=== PATIENT | male | born 1945 | race Caucasian/White ===

== ENCOUNTER → 2016-08-19 | Outpatient (CLI) | payer MEDICARE ==
[~2016-08-19] MED LIST: ALBU18HF PO; AMIT10TA PO; ASPI-496 PO; ASPI325T92 PO; ATOR40TA PO; BENZ2AMP4 PO; CARB1TAB44 PO; CARB1TAB47 PO; CHOL200024 PO; CLOP75TA PO; CYAN250T PO; FINA1TAB16 PO; FLUD0.1T PO; HYDR-3240 PO; L-METHYLFOLATE PO; LORA1TAB PO; MAGNESIUM COMPLEX PO; METO-93 PO; MV-M1TAB16 PO; NITR0.4T SL; OMEG-133 PO; PRAV80TA2 PO; RIVA1PAT23 HOMETD; SERT100T5 PO; TAMS0.4C2 PO; VITAMIN B12 PO; [UNRECOGNIZED DRUG - CODE] PO; [UNRECOGNIZED DRUG - OTHER] PO
== END | disposition home or self-care (01) ==
LOC: STAR 11:57
PROVIDERS: ATTEND Urology
DX: Z01.818 Encounter for other preprocedural examination (principal); C67.2 Malignant neoplasm of lateral wall of bladder; N35.8 Other urethral stricture
CPT/HCPCS: 81003; 87086; 93005

== ENCOUNTER 2016-08-25 05:27 | Day surgery (SDC) | payer MEDICARE ==
[2016-08-19 13:37] VITALS: BP 174/80
[~2016-08-25] VITALS: Ht 170.2 cm; Wt 66.0 kg
[2016-08-25] MEDS ORDERED: LIDOCAINE 1%, 2ML ONE (06:09)
[2016-08-25] MEDS ORDERED: LACTATED RINGERS 1,000 ML IV SCH (06:29)
[2016-08-25] MEDS ORDERED: LIDOCAINE 1%, 2ML SQ PRN (06:30)
[2016-08-25] MEDS ORDERED: ALBUTEROL/IPRATROPIUM 2.5MG/0.5MG, 3 ML ONE (07:08)
[2016-08-25] MEDS ORDERED: ALBUTEROL/IPRATROPIUM 2.5MG/0.5MG, 3 ML NEB ONE (07:30)
[2016-08-25] MEDS ORDERED: FENTANYL PF 100 MCG/2ML ONE ×2 (07:58→09:06)
[2016-08-25] MEDS ORDERED: hydrALAzine 20 MG/ML, 1ML IV PRN (08:30)
[2016-08-25] MEDS ORDERED: HYDROmorphone 1 MG/ML, 1ML IV PRN (08:30)
[2016-08-25] MEDS ORDERED: METOPROLOL 1 MG/ML, 5ML IV PRN (08:30)
[2016-08-25] MEDS ORDERED: OXYcodone 5 MG/5 ML ORAL.SOL UDC PO PRN (08:30)
[2016-08-25] MEDS ORDERED: EPHEDRINE 50 MG/ML, 1ML IVPush PRN (08:30)
[2016-08-25] MEDS ORDERED: ACETAMINOPHEN 325 MG TABLET PO PRN (08:30)
[2016-08-25] MEDS ORDERED: FENTANYL PF 100 MCG/2ML IV PRN (08:30)
[2016-08-25] MEDS ORDERED: ONDANSETRON 2MG/ML, 2ML IVPush PRN (08:30)
[2016-08-25] MEDS ORDERED: LABETALOL 5MG/ML, 20ML IV PRN (08:30)
[2016-08-25] MEDS ORDERED: MIDAZOLAM 1 MG/ML, 2ML IV PRN (08:30)
[2016-08-25] MEDS ORDERED: CIPROFLOXACIN/PMX 400MG/200ML 200 ML ONE (08:55)
[2016-08-25] MEDS ORDERED: OXYcodone 5 MG/5 ML ORAL.SOL UDC ONE (09:06)
[2016-08-25] MEDS ORDERED: ACETAMINOPHEN 650 MG/20.3 ML UDC ONE (09:06)
[2016-08-25] MEDS ORDERED: MIDAZOLAM 1 MG/ML, 2ML ONE (09:06)
[2016-08-25] MEDS ORDERED: OMNIPAQUE 350 MG/ML, 50 ML BOTTLE IV ONE (09:56)
[2016-08-25] MEDS ORDERED: ETOMIDATE 20 MG/10 ML ONE (16:07)
== END 2016-08-25 10:55 | disposition home or self-care (01) ==
LOC: OUT 05:27
PROVIDERS: ATTEND Urology
DX: N35.8 Other urethral stricture (principal); I11.0 Hypertensive heart disease with heart failure; I50.42 Chronic combined systolic (congestive) and diastolic (congestive) heart failure; I25.2 Old myocardial infarction; J44.9 Chronic obstructive pulmonary disease, unspecified; G20 Parkinson's disease; I25.10 Atherosclerotic heart disease of native coronary artery without angina pectoris; Z95.5 Presence of coronary angioplasty implant and graft; Z85.51 Personal history of malignant neoplasm of bladder; Z72.89 Other problems related to lifestyle; Z87.891 Personal history of nicotine dependence; Z82.49 Family history of ischemic heart disease and other diseases of the circulatory system; Z82.3 Family history of stroke
CPT/HCPCS: 36415; 52276; 74450; 80047; 88112; 94640; C1769; C2627; J0744; J3010; J3490; J7120; J7620; Q9967